=== PATIENT | female | born 1995 | race American Indian/Alaskan Native ===

== ENCOUNTER 2016-09-23 21:51 | Emergency (ER) | payer MEDICAID, OTHER ==
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
[2016-09-24] MEDS: NORCO 5/325 PO ONE (02:13)
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
[2016-09-24 02:58] LABS: Eosinophils % (Auto) 2.5 % (0.0-4.3); Hematocrit 43.2 % (30.3-42.9); Hemoglobin 14.1 gm/dl (10.1-14.3); Mean Corpuscular HGB Conc 33 % (30-34); Mean Corpuscular Hemoglobin 28 pg (28-32); Mean Corpuscular Volume 87 fl (79-97); Platelet Count 268 K/mm3 (140-440); Red Blood Count 4.97 M/mm3 (3.65-5.03); Red Cell Distribution Width 13.4 % (13.2-15.2); White Blood Count 5.7 K/mm3 (4.5-11.0)
[2016-09-24 04:03] VITALS: BP 112/62
== END 2016-09-24 04:05 | disposition home or self-care (01) ==
LOC: ED 21:51
DX: S30.1XXA Contusion of abdominal wall, initial encounter (principal); V49.59XA Passenger injured in collision with other motor vehicles in traffic accident, initial encounter; X58.XXXA Exposure to other specified factors, initial encounter; Y93.9 Activity, unspecified; Y92.9 Unspecified place or not applicable; Y99.9 Unspecified external cause status
CPT/HCPCS: 36415; 85025; 99284

== ENCOUNTER 2017-04-18 22:19 | Emergency (ER) | payer SELFPAY ==
--- NOTE | 2017-04-18 23:17 | Emergency Department Report ---
ED ENT HPI - General Chief complaint: Earache Stated complaint: LT EARACHE Time Seen by Provider: 04/18/17 22:41 Source: patient Mode of arrival: Ambulatory Limitations: No Limitations - History of Present Illness Initial comments: Patient states that she has had left ear pain, left hearing loss, nasal congestion, and productive cough for the past 4 days; initially had sore throat but it resolved; denies ear drainage, fevers, wheezing, and SOB MD complaint: ear pain Onset/Timin -: days(s) Location: L ear Severity: moderate Quality: aching Consistency: constant Worsens with: swallowing Associated Symptoms: cough, hearing loss. denies: fever, pain with swallowing, sore throat, tinnitus, discharge from ear, rhinorrhea - Related Data Previous Rx's Medication Instructions Recorded Last Taken Type Ibuprofen [Motrin 600 MG tab] 600 mg PO Q8H PRN #15 tablet 04/05/17 Unknown Rx Amoxicillin 500 mg PO TID #30 capsule 04/18/17 Unknown Rx Prednisone 50 mg PO QDAY #5 tablet 04/18/17 Unknown Rx Triamcinolone Acetonide [Nasacort 10.8 ml NS BID PRN #1 spray 04/18/17 Unknown Rx SPRAY] Allergies Allergy/AdvReac Type Severity Reaction Status Date / Time No Known Allergies Allergy Verified 08/29/15 09:56 ED Dental HPI - General Chief complaint: Earache Stated complaint: LT EARACHE Time Seen by Provider: 04/18/17 22:41 Source: patient Mode of arrival: Ambulatory Limitations: No Limitations - Related Data Previous Rx's Medication Instructions Recorded Last Taken Type Ibuprofen [Motrin 600 MG tab] 600 mg PO Q8H PRN #15 tablet 04/05/17 Unknown Rx Amoxicillin 500 mg PO TID #30 capsule 04/18/17 Unknown Rx Prednisone 50 mg PO QDAY #5 tablet 04/18/17 Unknown Rx Triamcinolone Acetonide [Nasacort 10.8 ml NS BID PRN #1 spray 04/18/17 Unknown Rx SPRAY] Allergies Allergy/AdvReac Type Severity Reaction Status Date / Time No Known Allergies Allergy Verified 08/29/15 09:56 ED Review of Systems ROS: Stated complaint: LT EARACHE Other details as noted in HPI Constitutional: denies: chills, fever Eyes: denies: eye pain, eye discharge, vision change ENT: ear pain, hearing loss, congestion. denies: throat pain, dental pain, epistaxis Respiratory: cough. denies: shortness of breath, wheezing Cardiovascular: denies: chest pain, palpitations Gastrointestinal: denies: abdominal pain, nausea, vomiting, diarrhea Musculoskeletal: denies: back pain, myalgia Skin: denies: rash Neurological: denies: headache, abnormal gait, vertigo ED Past Medical Hx - Past Medical History Hx Hypertension: No Hx CVA: No Hx Heart Attack/AMI: No Hx Congestive Heart Failure: No Hx Diabetes: No Hx Deep Vein Thrombosis: No Hx Pulmonary Embolism: No Hx GERD: No Hx Liver Disease: No Hx Renal Disease: No Hx Sickle Cell Disease: No Hx Arthritis: No Hx Headaches / Migraines: No Hx Seizures: No Hx Kidney Stones: No Hx Psychiatric Treatment: No Hx Asthma: Yes Hx COPD: No Hx Tuberculosis: No Hx Dementia: No Hx HIV: No - Surgical History Hx Coronary Stent: No Hx Open Heart Surgery: No Hx Pacemaker: No Hx Internal Defibrillator: No Hx Cholecystectomy: No Hx Appendectomy: No Hx Breast Surgery: No - Social History Smoking Status: Never Smoker Substance Use Type: None - Medications Home Medications: Home Medications Medication Instructions Recorded Confirmed Last Taken Type Ibuprofen [Motrin 600 MG tab] 600 mg PO Q8H PRN #15 tablet 04/05/17 Unknown Rx Amoxicillin 500 mg PO TID #30 capsule 04/18/17 Unknown Rx Prednisone 50 mg PO QDAY #5 tablet 04/18/17 Unknown Rx Triamcinolone Acetonide [Nasacort 10.8 ml NS BID PRN #1 spray 04/18/17 Unknown Rx SPRAY] ED Physical Exam - General Limitations: No Limitations General appearance: alert, in no apparent distress - Head Head exam: Present: atraumatic, normocephalic, normal inspection - Eye Eye exam: Present: normal appearance, PERRL, EOMI. Absent: conjunctival injection Pupils: Present: normal accommodation - ENT ENT exam: Present: normal orophraynx, mucous membranes moist, normal external ear exam, other (Left TM - erythematous, mild bulging; canal normal, no drainage or bleeding; Nose - bilateral mucosal edema) - Neck Neck exam: Present: normal inspection, full ROM. Absent: tenderness, lymphadenopathy - Respiratory Respiratory exam: Present: normal lung sounds bilaterally. Absent: respiratory distress, wheezes, rales, rhonchi, stridor - Cardiovascular Cardiovascular Exam: Present: regular rate, normal rhythm, normal heart sounds - Neurological Exam Neurological exam: Present: alert, oriented X3, normal gait - Psychiatric Psychiatric exam: Present: normal affect, normal mood - Skin Skin exam: Present: warm, dry, intact, normal color ED Course Vital Signs 04/18/17 04/18/17 04/18/17 22:21 22:23 23:49 Temperature 97.4 F L 97.4 F L Pulse Rate 77 72 69 Respiratory 18 18 18 Rate Blood Pressure 112/67 112/67 Blood Pressure 116/68 [Left] O2 Sat by Pulse 98 97 98 Oximetry ED Medical Decision Making - Medical Decision Making Told patient to drink plenty of fluids, start steroids and NS and use tylenol or motrin for fevers or pain and if ear pain doesn't start to improve in 3-4 days, then start ABX, follow up with PCP if sxs don't improve, she verbalized understanding Critical care attestation.: If time is entered above; I have spent that time in minutes in the direct care of this critically ill patient, excluding procedure time. ED Disposition Clinical Impression: Left otitis media Qualifiers: Otitis media type: unspecified Qualified Code(s): H66.92 - Otitis media, unspecified, left ear Upper respiratory infection Qualifiers: URI type: unspecified URI Qualified Code(s): J06.9 - Acute upper respiratory infection, unspecified Disposition: - TO HOME OR SELFCARE Is pt being admited?: No Condition: Stable Instructions: Otitis Media (ED), Upper Respiratory Infection (ED) Prescriptions: Amoxicillin 500 mg PO TID #30 capsule Prednisone 50 mg PO QDAY #5 tablet Triamcinolone Acetonide [Nasacort SPRAY] 10.8 ml NS BID PRN #1 spray PRN Reason: Congestion Referrals: PALMER GONZALEZ MD [Staff Physician] - 3-5 Days Forms: Work/School Release Form(ED) Time of Disposition: 23:26 Print Language: SLOVENIAN
[2017-04-18 23:50] VITALS: BP 116/68
== END 2017-04-18 23:50 | disposition home or self-care (01) ==
LOC: ED 22:19
DX: H66.92 Otitis media, unspecified, left ear (principal); J06.9 Acute upper respiratory infection, unspecified
CPT/HCPCS: 99282

== ENCOUNTER 2017-08-04 09:34 | Emergency (ER) | payer SELFPAY | END 2017-08-04 09:53 | disposition left against medical advice (07) | LOC: ED 09:34 | DX: R10.9 Unspecified abdominal pain (principal); Z53.21 Procedure and treatment not carried out due to patient leaving prior to being seen by health care provider ==

== ENCOUNTER 2017-10-28 22:26 | Outpatient (CLI) | payer MEDICAID ==
[2017-10-28 22:55] VITALS: BP 110/60
[2017-10-28] MEDS ORDERED: LACTATED RINGERS 1,000 ML IV ONE (23:02)
[2017-10-28 23:28] LABS: Bilirubin,Urine NEG (Negative); Blood,Urine NEG (Negative); Color,Urine Yellow (Yellow); Mucus,Urine 3+ /HPF
[2017-10-29] MEDS ORDERED: ZOFRAN IV ONE (02:54)
== END 2017-10-29 03:25 | disposition home or self-care (01) ==
LOC: TRG 22:26 → LD 22:35 → TRG 10-29 03:25
PROVIDERS: ATTEND Obstetrics & Gynecology
DX: O99.332 Smoking (tobacco) complicating pregnancy, second trimester (principal); O47.02 False labor before 37 completed weeks of gestation, second trimester; Z3A.25 25 weeks gestation of pregnancy
CPT/HCPCS: 59025; 81001; 96360; 96374; J2405; J7120

== ENCOUNTER 2018-02-04 17:17 | Emergency (ER) | payer MEDICAID ==
[2018-02-04 17:26] VITALS: BP 140/83
[2018-02-04] MEDS ORDERED: PROTONIX IV ONE (17:44)
--- NOTE | 2018-02-04 17:44 | Emergency Department Report ---
ED Abdominal Pain HPI - General Chief Complaint: Abdominal Pain Stated Complaint: UTERUS PAIN Time Seen by Provider: 02/04/18 17:44 Source: patient Mode of arrival: Ambulatory Limitations: No Limitations - Related Data Previous Rx's Medication Instructions Recorded Last Taken Type Ferrous Sulfate [Feosol 325 MG tab] 325 mg PO BID #60 tablet 02/01/18 Unknown Rx Ibuprofen [Motrin 600 MG tab] 600 mg PO Q6H #30 tablet 02/01/18 Unknown Rx Vit-Fe Fumar-FA [ 1 each PO QDAY #30 tablet 02/01/18 Unknown Rx Vitamin] Allergies Allergy/AdvReac Type Severity Reaction Status Date / Time No Known Allergies Allergy Verified 08/29/15 09:56 ED Review of Systems ROS: Stated complaint: UTERUS PAIN Other details as noted in HPI ED Past Medical Hx - Past Medical History Previous Medical History?: Yes Hx Hypertension: No Hx CVA: No Hx Heart Attack/AMI: No Hx Congestive Heart Failure: No Hx Diabetes: No Hx Deep Vein Thrombosis: No Hx Pulmonary Embolism: No Hx GERD: No Hx Liver Disease: No Hx Renal Disease: No Hx Sickle Cell Disease: No Hx Arthritis: No Hx Headaches / Migraines: No Hx Seizures: No Hx Kidney Stones: No Hx Psychiatric Treatment: No Hx Asthma: Yes (last attack years ago) Hx COPD: No Hx Tuberculosis: No Hx Dementia: No Hx HIV: No - Surgical History Past Surgical History?: No Hx Coronary Stent: No Hx Open Heart Surgery: No Hx Pacemaker: No Hx Internal Defibrillator: No Hx Cholecystectomy: No Hx Appendectomy: No Hx Breast Surgery: No - Social History Smoking Status: Never Smoker Substance Use Type: None - Medications Home Medications: Home Medications Medication Instructions Recorded Confirmed Last Taken Type Ferrous Sulfate [Feosol 325 MG tab] 325 mg PO BID #60 tablet 02/01/18 Unknown Rx Ibuprofen [Motrin 600 MG tab] 600 mg PO Q6H #30 tablet 02/01/18 Unknown Rx Vit-Fe Fumar-FA [ 1 each PO QDAY #30 tablet 02/01/18 Unknown Rx Vitamin] ED Physical Exam - General Limitations: No Limitations ED Course Vital Signs 02/04/18 17:22 Temperature 99.3 F Pulse Rate 113 H Respiratory 18 Rate Blood Pressure 140/83 O2 Sat by Pulse 98 Oximetry Critical care attestation.: If time is entered above; I have spent that time in minutes in the direct care of this critically ill patient, excluding procedure time. ED Disposition Condition: Stable Instructions: Abdominal Pain (ED) Referrals: PRIMARY CARE,MD [Primary Care Provider] - 3-5 Days
== END 2018-02-04 18:00 | disposition left against medical advice (07) ==
LOC: ED 17:17
DX: M54.5 Low back pain (principal); R10.9 Unspecified abdominal pain; Z53.21 Procedure and treatment not carried out due to patient leaving prior to being seen by health care provider

== ENCOUNTER 2018-10-10 14:18 | Emergency (ER) | payer OTHER ==
[2018-10-10 14:28] VITALS: BP 147/89
--- NOTE | 2018-10-10 17:37 | Emergency Department Report ---
ED Upper Extremity Inj HPI - General Chief Complaint: Extremity Problem,Nontraumatic Stated Complaint: WRIST AND FINGER PAIN Time Seen by Provider: 10/10/18 16:15 Source: patient Mode of arrival: Ambulatory Limitations: No Limitations - History of Present Illness Initial Comments: This is a 22-year-old female nontoxic, well nourished in appearance, no acute signs of distress presents to the ED with c/o of bilateral wrist pain 1 week. 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 Patient denies any trauma. Patient stated that pain radiates to 3rd and 4th fingers. Patient denies any numbness, tingling, fever, chills, nausea, vomiting, chest pain, shortness of breath, headache, stiff neck. Patient denies any joint swelling or joint redness. Patient denies described ROM. Patient denies any allergies. MD Complaint: Injury to:: left, right, wrist -: week(s) (1) Other Extremity Injury: Wrist: Left, Right Other Injuries: none Place: work Severity scale (0 -10): 8 Improves With: immobilization Worsens With: movement of extremity Associated Symptoms: denies other symptoms. denies: weakness, numbness, neck pain, suspects foreign body, nausea/vomiting, heard/felt popping sensat - Related Data Previous Rx's Medication Instructions Recorded Last Taken Type Ferrous Sulfate [Feosol 325 MG tab] 325 mg PO BID #60 tablet 02/01/18 Unknown Rx Ibuprofen [Motrin 600 MG tab] 600 mg PO Q6H #30 tablet 02/01/18 Unknown Rx Vit-Fe Fumar-FA [ 1 each PO QDAY #30 tablet 02/01/18 Unknown Rx Vitamin] Ibuprofen [Motrin] 600 mg PO Q8H PRN #20 tablet 10/10/18 Unknown Rx Prednisone [predniSONE 10 mg 10 mg PO .TAPER #1 tab.ds.pk 10/10/18 Unknown Rx (6-Day Pack, 21 Tabs)] Allergies Allergy/AdvReac Type Severity Reaction Status Date / Time No Known Allergies Allergy Verified 08/29/15 09:56 ED Review of Systems ROS: Stated complaint: WRIST AND FINGER PAIN Other details as noted in HPI Constitutional: denies: chills, fever Eyes: denies: eye pain, eye discharge, vision change ENT: denies: ear pain, throat pain Respiratory: denies: cough, shortness of breath, wheezing Cardiovascular: denies: chest pain, palpitations Endocrine: no symptoms reported Gastrointestinal: denies: abdominal pain, nausea, diarrhea Genitourinary: denies: urgency, dysuria, discharge Musculoskeletal: arthralgia. denies: back pain, joint swelling Skin: denies: rash, lesions Neurological: denies: headache, weakness, paresthesias Psychiatric: denies: anxiety, depression Hematological/Lymphatic: denies: easy bleeding, easy bruising ED Past Medical Hx - Past Medical History Previous Medical History?: Yes Hx Hypertension: No Hx CVA: No Hx Heart Attack/AMI: No Hx Congestive Heart Failure: No Hx Diabetes: No Hx Deep Vein Thrombosis: No Hx Pulmonary Embolism: No Hx GERD: No Hx Liver Disease: No Hx Renal Disease: No Hx Sickle Cell Disease: No Hx Arthritis: No Hx Headaches / Migraines: No Hx Seizures: No Hx Kidney Stones: No Hx Psychiatric Treatment: No Hx Asthma: Yes (last attack years ago) Hx COPD: No Hx Tuberculosis: No Hx Dementia: No Hx HIV: No - Surgical History Hx Coronary Stent: No Hx Open Heart Surgery: No Hx Pacemaker: No Hx Internal Defibrillator: No Hx Cholecystectomy: No Hx Appendectomy: No Hx Breast Surgery: No - Social History Smoking Status: Never Smoker Substance Use Type: Alcohol - Medications Home Medications: Home Medications Medication Instructions Recorded Confirmed Last Taken Type Ferrous Sulfate [Feosol 325 MG tab] 325 mg PO BID #60 tablet 02/01/18 Unknown Rx Ibuprofen [Motrin 600 MG tab] 600 mg PO Q6H #30 tablet 02/01/18 Unknown Rx Vit-Fe Fumar-FA [ 1 each PO QDAY #30 tablet 02/01/18 Unknown Rx Vitamin] Ibuprofen [Motrin] 600 mg PO Q8H PRN #20 tablet 10/10/18 Unknown Rx Prednisone [predniSONE 10 mg 10 mg PO .TAPER #1 tab.ds.pk 10/10/18 Unknown Rx (6-Day Pack, 21 Tabs)] ED Physical Exam - General Limitations: No Limitations General appearance: alert, in no apparent distress - Head Head exam: Present: atraumatic, normocephalic - Neck Neck exam: Present: normal inspection, full ROM - Extremities Exam Extremities exam: Present: normal inspection, full ROM, normal capillary refill. Absent: tenderness, joint swelling - Expanded Upper Extremity Exam Left General: Present: normal inspection Shoulder Exam: Present: normal inspection, full ROM. Absent: tenderness Upper Arm exam: Present: normal inspection, full ROM. Absent: tenderness Elbow exam: Present: normal inspection, full ROM. Absent: tenderness Forearm Wrist exam: Present: normal inspection, full ROM. Absent: tenderness Hand Wrist exam: Present: normal inspection, full ROM, other (positive Phalen's test). Absent: tenderness, swelling, abrasion, laceration, ecchymosis, deformity, crepidus, dislocation, erythema, amputation, nail avulsion, subungual hematoma Vascular: Present: vascular compromise, normal capillary refill - Back Exam Back exam: Present: normal inspection, full ROM - Neurological Exam Neurological exam: Present: alert, oriented X3 - Psychiatric Psychiatric exam: Present: normal affect, normal mood - Skin Skin exam: Present: warm, dry, intact, normal color. Absent: rash ED Course Vital Signs 10/10/18 14:25 Temperature 98.4 F Pulse Rate 110 H Respiratory 18 Rate Blood Pressure 147/89 O2 Sat by Pulse 97 Oximetry - Reevaluation(s) Reevaluation #1: 10/10/18 17:40 Patient is speaking in full sentences with no signs of distress noted. ED Medical Decision Making - Medical Decision Making This is a 22-year-old female that presents with carpal tunnel syndrome. Patient is stable and was examined by me. I referred patient to an orthopedic doctor for further evaluation for possible MRI. No joint swelling. No ecchymosis. no joint redness or swelling. Not warm to touch. No signs of cellulites present. Patient was instructed to RICE therapy. Patient is discharged with Motrin. At time of discharge, the patient does not seem toxic or ill in appearance. No acute signs of distress noted. Patient agrees to discharge treatment plan of care. No further questions noted by the patient. Critical care attestation.: If time is entered above; I have spent that time in minutes in the direct care of this critically ill patient, excluding procedure time. ED Disposition Clinical Impression: Carpal tunnel syndrome Qualifiers: Laterality: bilateral Qualified Code(s): G56.03 - Carpal tunnel syndrome, bilateral upper limbs Disposition: - TO HOME OR SELFCARE Is pt being admited?: No Does the pt Need Aspirin: No Condition: Stable Instructions: Carpal Tunnel Syndrome (ED) Additional Instructions: Follow-up with a orthopedic doctor in 3-5 days or if symptoms worsen and continue return to emergency room as soon as possible. Prescriptions: Ibuprofen [Motrin] 600 mg PO Q8H PRN #20 tablet PRN Reason: Pain Prednisone [predniSONE 10 mg (6-Day Pack, 21 Tabs)] 10 mg PO .TAPER #1 tab.ds.pk Referrals: MARCIA RIOJAS MD [Primary Care Provider] - 3-5 Days PRIMARY CAREMD [Referring] - 3-5 Days LAINE ART MD [Staff Physician] - 3-5 Days [facility] [Outside] - 3-5 Days Forms: Work/School Release Form(ED)
== END 2018-10-10 18:01 | disposition home or self-care (01) ==
LOC: ED 14:18
DX: G56.03 Carpal tunnel syndrome, bilateral upper limbs (principal); J45.909 Unspecified asthma, uncomplicated
CPT/HCPCS: 99282

== ENCOUNTER 2020-12-31 22:40 | Emergency (ER) | payer MEDICAID, OTHER ==
[2021-01-01] MEDS ORDERED: predniSONE 20 MG TAB PO ONE (02:00)
--- NOTE | 2021-01-01 02:31 | XRay Report ---
CHEST 1 VIEW 01/01/2021 1:17 AM INDICATION / CLINICAL INFORMATION: COUGH, DYSPNEA. COMPARISON: None available. FINDINGS: SUPPORT DEVICES: None. HEART / MEDIASTINUM: No significant abnormality. LUNGS / PLEURA: No significant pulmonary abnormality. No significant pleural effusion. No pneumothora x. ADDITIONAL FINDINGS: No significant additional findings. IMPRESSION: 1. No acute abnormality of the chest. Signer Name: Leonel López MD Signed: 01/01/2021 2:27 AM Workstation Name: [id number]
--- NOTE | 2021-01-01 02:42 | Emergency Department Report ---
ED Shortness of Breath HPI - General Chief Complaint: Dyspnea/Respdistress Stated Complaint: MOLD EXPOSURE/TATIANA/ANKLE PAIN Source: patient Mode of arrival: Ambulatory Limitations: No Limitations - History of Present Illness Initial Comments: Patient is a 25-year-old -[place] female with a history of asthma and chronic exposure to mold presents to the ED with complaint of acute onset persistent dry cough and shortness of breath with wheezing intermittently for the last 2 weeks, worse in the last 2 days. Patient states that she has previously used albuterol nebulizer at home with no relief. Patient denies fever, chills, chest pain, shortness of breath, sore throat, nasal and sinus congestion, nausea and vomiting, abdominal pain, palpitations or headache. MD Complaint: shortness of breath, cough -: Gradual, week(s) (2) Severity: moderate Pain Scale: 3 Quality: other (Chest tightness) Consistency: constant Improves With: bronchodilators Worsens With: nothing Known History Of: other (Reactive airway disease) Context: allergen exposure, other (States exposure to mold for 2 years ) Associated Symptoms: cough Treatments Prior to Arrival: none - Related Data Home Oxygen Therapy: No Previous Rx's Medication Instructions Recorded Last Taken Type Ferrous Sulfate [Feosol 325 MG tab] 325 mg PO BID #60 tablet 02/01/18 Unknown Rx Ibuprofen [Motrin 600 MG tab] 600 mg PO Q6H #30 tablet 02/01/18 Unknown Rx Vit-Fe Fumar-FA [ 1 each PO QDAY #30 tablet 02/01/18 Unknown Rx Vitamin] Ibuprofen [Motrin] 600 mg PO Q8H PRN #20 tablet 10/10/18 Unknown Rx Albuterol Sulfate [Proventil Hfa] 1 - 2 puff IH Q6H PRN #1 hfa.aer.ad 01/01/21 Unknown Rx Benzonatate [Tessalon Perles] 100 mg PO Q8HR #30 capsule 01/01/21 Unknown Rx Doxycycline Hyclate 100 mg PO Q12H #20 tablet.dr 01/01/21 Unknown Rx Prednisone [predniSONE 10 mg 10 mg PO .TAPER #21 tab.ds.pk 01/01/21 Unknown Rx (6-Day Pack, 21 Tabs)] Allergies Allergy/AdvReac Type Severity Reaction Status Date / Time No Known Allergies Allergy Verified 08/29/15 09:56 ED Review of Systems ROS: Stated complaint: MOLD EXPOSURE/TATIANA/ANKLE PAIN Other details as noted in HPI Constitutional: denies: chills, fever Eyes: denies: eye pain, eye discharge, vision change ENT: denies: ear pain, throat pain Respiratory: cough, shortness of breath, wheezing Cardiovascular: denies: chest pain, palpitations Endocrine: no symptoms reported Gastrointestinal: denies: abdominal pain, nausea, diarrhea Genitourinary: denies: urgency, dysuria, discharge Musculoskeletal: denies: back pain, joint swelling, arthralgia Skin: denies: rash, lesions Neurological: denies: headache, weakness, paresthesias Psychiatric: denies: anxiety, depression Hematological/Lymphatic: denies: easy bleeding, easy bruising ED Past Medical Hx - Past Medical History Previous Medical History?: Yes Hx Hypertension: No Hx CVA: No Hx Heart Attack/AMI: No Hx Congestive Heart Failure: No Hx Diabetes: No Hx Deep Vein Thrombosis: No Hx Pulmonary Embolism: No Hx GERD: No Hx Liver Disease: No Hx Renal Disease: No Hx Sickle Cell Disease: No Hx Arthritis: No Hx Headaches / Migraines: No Hx Seizures: No Hx Kidney Stones: No Hx Psychiatric Treatment: No Hx Asthma: Yes (last attack years ago) Hx COPD: No Hx Tuberculosis: No Hx Dementia: No Hx HIV: No - Surgical History Hx Coronary Stent: No Hx Open Heart Surgery: No Hx Pacemaker: No Hx Internal Defibrillator: No Hx Cholecystectomy: No Hx Appendectomy: No Hx Breast Surgery: No - Social History Smoking Status: Never Smoker Substance Use Type: None - Medications Home Medications: Home Medications Medication Instructions Recorded Confirmed Last Taken Type Ferrous Sulfate [Feosol 325 MG tab] 325 mg PO BID #60 tablet 02/01/18 Unknown Rx Ibuprofen [Motrin 600 MG tab] 600 mg PO Q6H #30 tablet 02/01/18 Unknown Rx Vit-Fe Fumar-FA [ 1 each PO QDAY #30 tablet 02/01/18 Unknown Rx Vitamin] Ibuprofen [Motrin] 600 mg PO Q8H PRN #20 tablet 10/10/18 Unknown Rx Albuterol Sulfate [Proventil Hfa] 1 - 2 puff IH Q6H PRN #1 hfa.aer.ad 01/01/21 Unknown Rx Benzonatate [Tessalon Perles] 100 mg PO Q8HR #30 capsule 01/01/21 Unknown Rx Doxycycline Hyclate 100 mg PO Q12H #20 tablet. 01/01/21 Unknown Rx Prednisone [predniSONE 10 mg 10 mg PO .TAPER #21 tab.ds.pk 01/01/21 Unknown Rx (6-Day Pack, 21 Tabs)] ED Physical Exam - General Limitations: No Limitations General appearance: alert, in no apparent distress - Head Head exam: Present: atraumatic, normocephalic, normal inspection - Eye Eye exam: Present: normal appearance, PERRL, EOMI Pupils: Present: normal accommodation - ENT ENT exam: Present: normal exam, normal orophraynx, mucous membranes moist, TM's normal bilaterally, normal external ear exam - Neck Neck exam: Present: normal inspection, full ROM - Respiratory Respiratory exam: Present: normal lung sounds bilaterally. Absent: respiratory distress, wheezes, rales, rhonchi, chest wall tenderness, accessory muscle use - Cardiovascular Cardiovascular Exam: Present: regular rate, normal rhythm, normal heart sounds. Absent: systolic murmur, diastolic murmur, rubs, gallop - GI/Abdominal GI/Abdominal exam: Present: soft, normal bowel sounds. Absent: tenderness, guarding, rebound, hyperactive bowel sounds, hypoactive bowel sounds, organomegaly - Extremities Exam Extremities exam: Present: normal inspection, full ROM, normal capillary refill - Back Exam Back exam: Present: normal inspection, full ROM. Absent: tenderness, CVA tenderness (R), CVA tenderness (L), muscle spasm, paraspinal tenderness, vertebral tenderness - Neurological Exam Neurological exam: Present: alert, oriented X3, CN II-XII intact, normal gait, reflexes normal - Psychiatric Psychiatric exam: Present: normal affect, normal mood - Skin Skin exam: Present: warm, dry, intact, normal color. Absent: rash ED Course Vital Signs 12/31/20 23:44 Temperature 98.2 F Pulse Rate 79 Respiratory 18 Rate Blood Pressure 163/100 O2 Sat by Pulse 100 Oximetry ED Medical Decision Making - Radiology Data Radiology results: report reviewed, image reviewed [facility] [address] [place] [address] XRay Report Signed Patient: VIJAY WALSH Rachel#: [id number] : 1995 Acct:[id number] Age/Sex: 25 / F ADM Date: 12/31/20 Loc: ED Attending Dr: Ordering Physician: MARIA ELENA WILL Date of Service: 01/01/21 Procedure(s): XR chest 1V ap Accession Number(s): [id number] cc: MARIA ELENA WILL Fluoro Time In Minutes: CHEST 1 VIEW 01/01/2021 1:17 AM INDICATION / CLINICAL INFORMATION: COUGH, DYSPNEA. COMPARISON: None available. FINDINGS: SUPPORT DEVICES: None. HEART / MEDIASTINUM: No significant abnormality. LUNGS / PLEURA: No significant pulmonary abnormality. No significant pleural effusion. No pneumothorax. ADDITIONAL FINDINGS: No significant additional findings. IMPRESSION: 1. No acute abnormality of the chest. Signer Name: Leonel López MD Signed: 01/01/2021 2:27 AM Workstation Name: [id number] Transcribed By: NAKIA Dictated By: Leonel López MD Electronically Authenticated By: Leonel López MD Signed Date/Time: 01/01/21226 DD/ 5 TD/TT: - Medical Decision Making This is a 25-year-old -[place] female with a history of asthma and chronic exposure to mold presents to the ED with complaint of acute onset persistent dry cough and shortness of breath with wheezing intermittently for the last 2 weeks, worse in the last 2 days. Patient states that she has previously used albuterol nebulizer at home with no relief. In the ED, patient is alert and oriented x3 and is not in any distress. Patient is hemodynamically stable with oxygen saturation of 100% in room air. Patient was treated in the ED with oral prednisone. Chest x-ray shows no acute cardiopulmonary abnormalities or pneumonitis. Physical exam is unremarkable. Patient was therefore discharged home on medications and advised to follow-up with her primary care physician in 5 to 7 days for reevaluation. Patient is advised return to the ED immediately if symptoms get worse. - Differential Diagnosis Chronic bronchitis; pneumonia; URI; reactive airway disease Critical care attestation.: If time is entered above; I have spent that time in minutes in the direct care of this critically ill patient, excluding procedure time. ED Disposition Clinical Impression: Shortness of breath, Chronic bronchitis with acute exacerbation Disposition: DC-01 TO HOME OR SELFCARE Is pt being admited?: No Does the pt Need Aspirin: No Condition: Stable Instructions: Chronic Bronchitis (ED), Shortness of Breath, Adult, [id number], Cough, Adult, [id number], Chronic Bronchitis, Adult Additional Instructions: Chest x-ray shows no acute cardiopulmonary abnormalities or pneumonitis. Your symptoms are likely due to reactive airway disease exacerbating her shortness of breath. Therefore take medications with food, drink plenty of fluids and follow-up with your primary care physician in 5 to 7 days for reevaluation. Return to the ED immediately if symptoms get worse. Prescriptions: Doxycycline Hyclate 100 mg PO Q12H #20 tablet. Prednisone [predniSONE 10 mg (6-Day Pack, 21 Tabs)] 10 mg PO .TAPER #21 tab.ds.pk Albuterol Sulfate [Proventil Hfa] 1 - 2 puff IH Q6H PRN #1 hfa.aer.ad PRN Reason: Shortness Of Breath Benzonatate [Tessalon Perles] 100 mg PO Q8HR #30 capsule Referrals: [facility] [Provider Group] - 3-5 Days Time of Disposition: 02:40 Print Language: SETSWANA
[2021-01-01 03:10] VITALS: BP 143/85
== END 2021-01-01 02:55 | disposition home or self-care (01) ==
LOC: ED 22:40
DX: R06.02 Shortness of breath (principal); J42 Unspecified chronic bronchitis; J45.909 Unspecified asthma, uncomplicated
CPT/HCPCS: 71045; 99283; J7512